=== PATIENT | female | born 1990 | race Caucasian/White ===

== ENCOUNTER 2023-01-25 05:16 | Inpatient (IN) | payer MEDICAID, OTHER, SELFPAY ==
[2023-01-24 10:55] LABS: Platelet Count 232 10x3/uL (150-450)
[2023-01-24 12:30] LABS: HBSAg Index 0.17 S/CO (0-0.99); Hep B Surf Ag Non-Reactive S/CO (NonReactive)
[2023-01-24 12:31] LABS: Syphilis Antibody Nonreactive (Nonreactive); Syphilis Antibody Index 0.04 S/CO (<1.00 Non-Reactive)
[2023-01-25 05:38] VITALS: BMI 34.0
[2023-01-25] MEDS ORDERED: Famotidine/PF 20 mg/2ml Vial SLOW IVP PRN (05:50)
[2023-01-25] MEDS ORDERED: Bicitra 30 ML UDCUP PO PRN (05:51)
[2023-01-25] MEDS ORDERED: Clindamycin/D5W 900 MG in Premix 1 BAG IVPB SCH (06:00)
[2023-01-25] MEDS ORDERED: Ondansetron PF 4 MG/2 ML Vial IVP PRN ×5 (06:00→11:16)
[2023-01-25] MEDS ORDERED: Gentamicin Sulfate 120 MG in Premix 1 BAG IVPB SCH (06:00)
[2023-01-25] MEDS ORDERED: Promethazine HCl 25 MG/ML VIAL IM PRN ×4 (06:00→11:16)
[2023-01-25] MEDS ORDERED: Lactated Ringer's 1,000 ML IV SCH ×2 (06:00→07:30)
[2023-01-25] MEDS ORDERED: hydrALAZINE 20 MG/ML VIAL SLOW IVP PRN ×3 (06:00→11:16)
[2023-01-25] MEDS ORDERED: Morphine PF 10 MG/10 ML VIAL ONE (07:20)
[2023-01-25] MEDS ORDERED: Ondansetron PF 4 MG/2 ML Vial ONE (07:21)
[2023-01-25] MEDS ORDERED: Oxytocin 10 UNITS/ML VIAL ONE ×2 (07:21→08:18)
[2023-01-25] MEDS ORDERED: Dexamethasone 4 mg/ml Vial ONE (07:21)
[2023-01-25] MEDS ORDERED: Phenylephrine 40 MG/NS 250 ML 250 ML ONE (07:23)
[2023-01-25] MEDS ORDERED: Ketorolac Tromethamine 30 MG/ML VIAL ONE (07:23)
[2023-01-25] MEDS ORDERED: Methylergonovine 0.2 MG/ML VIAL IM PRN (07:27)
[2023-01-25] MEDS ORDERED: Carboprost 250 MCG/ML AMP IM PRN (07:27)
[2023-01-25] MEDS ORDERED: Tranexamic Acid 1,000 MG/10 ML VIAL IVP PRN (07:27)
[2023-01-25] MEDS ORDERED: Diphenoxylate HCl/Atropine Tablet PO PRN (07:27)
[2023-01-25] MEDS ORDERED: Misoprostol 200 MCG TAB PR PRN (07:27)
[2023-01-25] MEDS ORDERED: CEFAZOLIN 2 GM in Sodium Chloride 0.9% 100 ML IVPB SCH (07:30)
[2023-01-25] MEDS ORDERED: Oxytocin 30 units/NS 500 ML 500 ML IV SCH (07:30)
[2023-01-25] MEDS ORDERED: diphenhydrAMINE 50 MG/ML VIAL ONE (07:58)
[2023-01-25] MEDS ORDERED: Naloxone HCl 0.4 mg/ml Vial IV PRN (09:52)
[2023-01-25] MEDS ORDERED: fentaNYL 50 mcg/mL 1 mL Vial SLOW IVP PRN (09:52)
[2023-01-25] MEDS ORDERED: diphenhydrAMINE 50 MG/ML VIAL IVP PRN (09:52)
[2023-01-25] MEDS ORDERED: Meperidine HCl/PF 25 MG/ML VIAL SLOW IVP PRN (09:52)
[2023-01-25] MEDS ORDERED: Naloxone HCl 0.4 mg/ml Vial IVP PRN ×2 (09:52)
[2023-01-25] MEDS ORDERED: Promethazine HCl 25 MG SUPP PR PRN (09:52)
[2023-01-25] MEDS ORDERED: Ketorolac Tromethamine 30 MG/ML VIAL IVP PRN (09:52)
[2023-01-25] MEDS ORDERED: Moisturizing Cream (Eucerin) 113 GM JAR TOP PRN (09:52)
[2023-01-25] MEDS ORDERED: Communication Order-Pharmacy FS SCH (10:00)
[2023-01-25] MEDS ORDERED: Ketorolac Tromethamine 30 MG/ML VIAL IVP SCH (10:00)
[2023-01-25] MEDS ORDERED: Bisacodyl 10 MG SUPP PR PRN (11:16)
[2023-01-25] MEDS ORDERED: Boostrix 0.5 ML (Tdap) VIAL (>/=7 yrs of age) IM ONE (11:16)
[2023-01-25] MEDS ORDERED: Meperidine HCl/PF 25 MG/ML VIAL IM PRN (11:16)
[2023-01-25] MEDS ORDERED: diphenhydrAMINE 25 MG CAP PO PRN (11:16)
[2023-01-25] MEDS ORDERED: Lanolin Ointment 7 GM TUBE TOP PRN (11:16)
[2023-01-25] MEDS ORDERED: Prenatal Vitamin 1 TAB PO SCH (12:00)
[2023-01-25] MEDS ORDERED: Docusate 100 MG CAP PO SCH (12:00)
[2023-01-25] MEDS ORDERED: Ferrous Sulfate 325 MG TAB PO SCH (12:00)
[2023-01-25] MEDS: Ketorolac Tromethamine 30 MG/ML VIAL IVP SCH ×2 (14:04→20:29)
[2023-01-25] MEDS: Ferrous Sulfate 325 MG TAB PO SCH (20:29)
[2023-01-25] MEDS: Docusate 100 MG CAP PO SCH (20:29)
[2023-01-26] MEDS: Ketorolac Tromethamine 30 MG/ML VIAL IVP SCH (02:30)
[2023-01-26 04:34] LABS: Hematocrit 26.3 % (34.9-44.5); Hemoglobin 8.9 g/dL (12.0-15.5); Mean Corpuscular HGB CONC 33.8 g/dL (32.0-36.0); Mean Corpuscular Hemoglobin 31.9 pg (27.0-33.0); Mean Corpuscular Volume 94.3 fl (81.6-98.3); Mean Platelet Volume 11.4 fl (7.4-10.4); Platelet Count 158 10x3/uL (150-450); RBC Distribution Width 12.9 % (11.5-14.5); Red Blood Cell (RBC) Count 2.79 10x6/uL (3.90-5.03); White Blood Cell (WBC) Count 8.7 10x3/uL (3.5-10.5)
[2023-01-26] MEDS: Simethicone Chewable 80 MG TAB PO PRN ×2 (08:04→12:28)
[2023-01-26] MEDS: HYDROcodone/Acetaminophen 5/325 mg Tablet PO PRN ×3 (08:04→18:28)
[2023-01-26] MEDS: Prenatal Vitamin 1 TAB PO SCH (08:05)
[2023-01-26] MEDS: Docusate 100 MG CAP PO SCH ×2 (08:05→21:27)
[2023-01-26] MEDS: Ferrous Sulfate 325 MG TAB PO SCH ×2 (08:05→21:27)
[2023-01-26] MEDS: Ibuprofen 800 MG TAB PO SCH ×2 (14:39→21:27)
[2023-01-27] MEDS: HYDROcodone/Acetaminophen 5/325 mg Tablet PO PRN ×2 (04:03→11:40)
[2023-01-27] MEDS: Ibuprofen 800 MG TAB PO SCH ×3 (06:05→21:36)
[2023-01-27] MEDS: Prenatal Vitamin 1 TAB PO SCH (07:37)
[2023-01-27] MEDS: Docusate 100 MG CAP PO SCH ×2 (07:37→21:38)
[2023-01-27] MEDS: Ferrous Sulfate 325 MG TAB PO SCH ×2 (07:37→21:36)
[2023-01-28] MEDS: Ibuprofen 800 MG TAB PO SCH (05:30)
[2023-01-28] MEDS: HYDROcodone/Acetaminophen 5/325 mg Tablet PO PRN (05:33)
[2023-01-28 08:02] VITALS: BP 116/77; TEMP 97.6
[2023-01-28] MEDS ORDERED: Milk Of Magnesia 30 ML UDCUP PO SCH (08:30)
== END 2023-01-28 12:08 | disposition home or self-care (01) | DRG 788 ==
LOC: CSHLD 05:16 → CSHPP 11:20
PROVIDERS: ADMIT Family Medicine; ATTEND Family Medicine
PROC: 10D00Z1 Extraction of Products of Conception, Low, Open Approach (ICD-10-PCS; principal; 2023-01-25)
DX: O32.8XX0 Maternal care for other malpresentation of fetus, not applicable or unspecified (principal); O36.5930 Maternal care for other known or suspected poor fetal growth, third trimester, not applicable or unspecified; Z37.0 Single live birth; Z3A.39 39 weeks gestation of pregnancy; Z88.0 Allergy status to penicillin; Z88.1 Allergy status to other antibiotic agents
CPT/HCPCS: 36415; 51702; 85014; 85018; 85027; 85049; 86780; 86850; 86900; 86901; 87340; J1100; J1200; J1580; J1885; J2274; J2405; J2590; J3490